=== PATIENT | female | born 1980 | race Caucasian/White ===

== ENCOUNTER 2024-09-11 08:36 | Emergency (ER) | payer OTHER, SELFPAY ==
[2024-09-11 08:40] VITALS: BP 185/100
[2024-09-11] MEDS: NSS 1000 IV (09:37)
[2024-09-11 09:43] LABS: % Basophils 0.7 % (0-2); % Eosinophils 0.1 % (0-6); % Immature Granulocytes 0.3 % (0-0.5); % Lymphocytes 15.8 % (20.5-51.1); % Monocytes 5.5 % (1.7-9.3); % Neutrophils 77.6 % (42.2-75.2); Absolute Basophils 0.1 10^3/uL (0-0.2); Absolute Lymphocytes 1.2 10^3/uL (1.2-3.4); Absolute Monocytes 0.4 10^3/uL (0.1-0.6); Absolute Neutrophils 5.7 10^3/uL (1.4-6.5); Hematocrit 42.7 % (37.0-47.0); Hemoglobin 15.1 g/dL (12.0-16.0); Mean Corp Hgb Conc. 35.4 g/dL (33.0-37.0); Mean Corpuscular Hgb 30.7 pg (27.0-31.0); Mean Corpuscular Volume 86.8 fL (81.0-99.0); Mean Platelet Volume 8.8 fL (7.4-10.4); Nucleated Red Blood Cells % 0 %; Platelet Count 337 10^3/uL (130-400); Red Blood Cell Count 4.92 10^6/uL (4.20-5.40); Red Cell Dist. Width 12.1 % (11.5-14.5); White Blood Cell Count 7.3 10^3/uL (4.8-10.8)
--- NOTE | 2024-09-11 09:49 | ED.GENMED ---
History of Present Illness
General
Chief Complaint: Urinary Symptoms
Source: patient
Exam Limitations: none
Time Seen by Provider: 09/11/24 08:47
History of Present Illness
History of Present Illness:
Patient treated for UTI last week. Treated with Macrobid. UTI urinary symptoms resolved. However then developed right flank and back pain. No fever.
Past History
Past History
ED Past Medical History: None
ED Past Surgical History: Other (Matlock teeth)
Social History
Tobacco: Non-smoker
Personal:
Review of Systems
Review of Systems
All Other Systems: Not applicable
Constitutional: Denies fever or chills
ABD/GI: Denies abdominal pain
Phy Exam
Physical Exam
Physical Exam:
GENERAL: Alert and oriented in no apparent distress
EYE: Orbits normal.
NECK: Supple
CARDIAC: Regular rate and rhythm without any obvious murmurs.
LUNGS: Clear breath sounds,normal
ABDOMEN: Soft, without focal tenderness or distention. No CVA tenderness
NEUROLOGICAL: Alert and oriented , grossly non-focal
SKIN: Warm and dry, no rash or lesion, no discoloration, skin intact.
MUSCULOSKELETAL: No edema,no deformity.Good color
PSYCH: Normal and appropriate interaction.
Course
Orders/Labs/Results
Orders:
Orders
09/11/24 09:14
CT Abd/Pel (IV only)-[facility] only Urgent
Comment:
Reason For Exam: Right flank pain. Possible UTI
IV Insert/Care/Rem.- Treatment PRN
0.9% Sodium Chloride 1000 ml [Nss] 1,000 ml IV BOLUS
Test Result ONCE
09/11/24 09:33
Complete Blood Count/With Diff Urgent
Comprehensive Metabolic Panel Urgent
HCG, Serum Qualitative Screen Urgent
09/11/24 10:26
Urinalysis Reflex To Culture Urgent
Date Specimen was Collected: 09/11/24
Time Specimen was Collected: 09:16
Urine Microscopic Reflex Cult Urgent
09/11/24 12:13
Cefdinir [Omnicef] 300 mg PO NOW STA
Abnormal Lab Results
09/11/24 09/11/24
09:33 10:26
Neutrophils % 77.6 H %
(42.2-75.2)
Lymphocytes % 15.8 L %
(20.5-51.1)
Glucose 113 H mg/dl
(70-99)
Urine Bacteria (Reflex) Few A
(Negative)
Urine Albumin (Reflex) 1+ A
(Neg - Trace)
09/11/24 09:33
09/11/24 09:33
Vital Signs
Initial and Last Documented VS:
Initial Vital Signs
Temp Pulse Resp BP Pulse Ox
98.7 F 120 16 185/100 98
09/11/24 08:40 09/11/24 08:40 09/11/24 08:40 09/11/24 08:40 09/11/24 08:40
Last Documented Vital Signs
Temp Pulse Resp BP Pulse Ox
98.7 F 75 16 161/85 100
09/11/24 08:40 09/11/24 10:28 09/11/24 10:28 09/11/24 10:25 09/11/24 10:26
MDM/Problems Addressed
Differential Diagnosis Includes:
Right flank pain recent treatment for UTI. High suspicion for kidney stone, kidney stone with infection or pyelonephritis. Workup in progress
*Pulse Oximetry
Patient hypoxic: no
*Critical Care Note
Total Time (30-74mins, 75-104mins- exclusive of procedures): Not Applicable
Update Note
Update Note:
Patient's workup is unremarkable. This is either flank pain unknown etiology or partially treated pyelo-. Discussed options of ongoing observation versus covering with a cephalosporin for possible early González. Patient elected option to
ED Attending Note
-
Portions of this chart may have been created with voice recognition software.� Occasional wrong word or��sound alike� substitutions may have occurred due to the inherent limitations of voice recognition software.
Discharge Plan
Departure
Patient Disposition: Home (Routine Discharge)
Date of Disposition: 09/11/24
Time of Disposition: 12:22
Patient with high blood pressure during this ER visit?: Yes
Discharge Problem:
Right flank pain, Possible partially treated pyelonephriti
Instructions: Flank pain - ED discharge instructions, BLOOD PRESSURE
Prescriptions:
New
cefdinir 300 mg capsule
300 mg PO BID 7 Days Qty: 14 0RF
No Action
etonogestrel-ethinyl estradiol [NuvaRing] 1 VAG.RING ring
1 vag.ring VAG WEEKLY
Patient Comments:
Pt took out ring this sunday.
lorazepam 1 MG tablet
1 mg PO Q8HPRN PRN (Reason: anxiety) Qty: 10 0RF
Referrals:
NONE,* [Family Provider] -
Activity Restrictions/Additional Instructions:
Follow-up with your primary physician
Recheck with increased symptoms, fever or if symptoms or not improving in 2 to 3 days
Interventions
Interventions:
*Risk Screen - Suicide Last Done: 09/11/24 08:40
*General Assessment Last Done: 09/11/24 10:00
*Neglect/Abuse Screening Last Done: 09/11/24 08:40
*ED COVID-19 Vaccine History Last Done: 09/11/24 10:00
ED-Female Genitourinary Assessment Last Done: 09/11/24 10:00
Discharge Date and Time
Print Language: INDONESIAN
[2024-09-11 09:54] LABS: HCG, Serum Qualitative Screen Negative
[2024-09-11 09:57] LABS: ALT (SGPT) 19 U/L (0-35); AST (SGOT) 20 U/L (14-36); Albumin 4.6 g/dl (3.5-5.0); Alkaline Phosphatase 72 U/L (38-126); Blood Urea Nitrogen 10 mg/dl (7-17); Calcium 9.8 mg/dl (8.4-10.2); Carbon Dioxide 23 mmol/L (22-30); Chloride 106 mmol/L (98-107); Glucose 113 mg/dl (70-99); Potassium 4.2 mmol/L (3.5-5.1); Sodium 140 mmol/L (135-145); Total Bilirubin 0.9 mg/dl (0.2-1.3); Total Protein 7.5 g/dl (6.3-8.2); eGFR > 60.00
[2024-09-11 10:25] VITALS: BP 161/85
[2024-09-11 10:46] LABS: Urine Albumin 1+ (Neg - Trace); Urine Bilirubin Negative (Negative); Urine Character Clear (Clear); Urine Color Yellow; Urine Glucose Negative (Negative); Urine Ketone Negative (Negative); Urine Leukocyte Negative (Negative); Urine Nitrite Negative (Negative); Urine Occult Blood Negative (Negative); Urine Urobilinogen Negative (Neg - 1+)
[2024-09-11 11:25] LABS: Urine Urothelial Cell 0-2 /LPF (FEW)
[2024-09-11 11:26] LABS: Urine Bacteria Few (Negative); Urine Red Blood Cell 0-2 /HPF (0-2); Urine White Cell 0-2 /HPF (0-5)
[2024-09-11 12:30] VITALS: BP 144/66
[2024-09-11] MEDS: OMNICEF 300 MG PO (12:49)
== END 2024-09-11 13:00 | disposition home or self-care (01) ==
LOC: EMR 08:36
PROVIDERS: EMERGENCY PHYSICIAN Emergency Medicine
DX: R10.9 Unspecified abdominal pain (principal); M54.9 Dorsalgia, unspecified; Z87.440 Personal history of urinary (tract) infections
CPT/HCPCS: 96360; 99284; 74177; 80053; 81003; 81015; 84703; 85025; Q9967